=== PATIENT | female | born 1955 | race Caucasian/White ===

== ENCOUNTER 2018-07-19 05:44 | Observation (INO) | payer BC ==
--- NOTE | 2018-07-11 20:56 | HP ---
HISTORY AND PHYSICAL: DATE OF ADMISSION/SURGERY: 07/19/18 DATE OF OFFICE VISIT: 07/09/18 SURGEON: Edita Oconnor MD * (DICTATED BY ALEXEY CAMPOS) PROCEDURE: Right total knee arthroplasty. CHIEF COMPLAINT: Right knee pain. HISTORY OF PRESENT ILLNESS: Ms. Reyes is a 63-year-old female with continued complaints of right knee pain. She has failed conservative treatment and elected to proceed with a right total knee arthroplasty. PAST MEDICAL HISTORY: Hypertension, asthma, and heart murmur. PAST SURGICAL HISTORY: Left total knee arthroplasty, tubal ligation, right knee arthroscopy. CURRENT MEDICATIONS: 1. Hydrochlorothiazide 25 mg daily. 2. Fish oil. 3. Glucosamine. 4. Zyrtec Allergy. 5. Omnaris nasal spray. 6. Calcium with vitamin D. 7. Vitamin C. 8. Metoprolol 50 mg daily. 9. Omeprazole 20 mg daily. 10. Nasacort Allergy. 11. Quinapril 10 mg daily. 12. Meloxicam. ALLERGIES: CODEINE and ERYTHROMYCIN. FAMILY HISTORY: Cancer. SOCIAL HISTORY: She is a 63-year-old female. She lives with a housemate. She does not smoke or use drugs. Denies use of alcohol. REVIEW OF SYSTEMS: A complete 14-point review of systems was reviewed with the patient, it was all negative and noncontributory. She denies history of DVT, PE , hepatitis, HIV, or anesthesia problems. PHYSICAL EXAMINATION GENERAL: She is well developed, well nourished, in no acute distress. VITAL SIGNS: She stands 64 inches tall, weighs 225 pounds. Her blood pressure is 120/78. Her heart rate is 88. HEENT: Normocephalic, atraumatic. NECK: Supple. No palpable lymph nodes. PULMONARY: The lungs are clear to auscultation bilaterally. CARDIO: Regular rate and rhythm. Strong S1, S2. ABDOMEN: Soft, nontender, nondistended. NEUROLOGIC: She is alert and oriented x3. MUSCULOSKELETAL: Right lower extremity, the skin is intact. There are no open wounds or abrasions. She has some tenderness over the medial and lateral joint line. There is a moderate joint effusion. Range of motion is 10 to 120 degrees of flexion with patellofemoral crepitus. She has a 2+ dorsalis pedis pulse. Intact sensation in her lower extremity. Muscle group strengths are intact to 5/5. ASSESSMENT AND PLAN: Ms. Reyes is a 63-year-old female with end-stage osteoarthritis of the right knee. She has failed conservative treatment and elected to proceed with a right total knee arthroplasty. The surgery is scheduled for 07/19/[address] Oconnor discussed the risks and benefits of the surgery at today's visit and all of her questions were answered. She will follow up with Dr. Oconnor 2 weeks after the surgery. ALEXEY CAMPOS [id number]/[facility] #: [id number] TITO
[~2018-07-19 05:44] MED LIST: Buffered Lidocaine 0.9% SYRIN* 5 ML/SYR SYRINGE INTRADERM ONE; Tranexamic Acid 1,000 MG in NS 0.9% 50 ML* (outpatient use) IV SCH
[2018-07-19] MEDS ORDERED: Acetaminophen TAB* 325 MG PO ONE (06:00)
[2018-07-19] MEDS ORDERED: Famotidine IV* 10 MG/ML 2 ML (20 mg) IV ONE (06:00)
[2018-07-19] MEDS ORDERED: Gabapentin CAP(*) 300 MG PO ONE (06:00)
[2018-07-19] MEDS ORDERED: celeCOXIB CAP* 200 MG PO ONE (06:00)
[2018-07-19] MEDS ORDERED: celeCOXIB CAP* 100 MG ONE (06:40)
[2018-07-19] MEDS ORDERED: Famotidine IV* 10 MG/ML 2 ML (20 mg) ONE (06:40)
[2018-07-19] MEDS ORDERED: Gabapentin CAP(*) 300 MG ONE (06:40)
[2018-07-19] MEDS ORDERED: Acetaminophen TAB* 325 MG ONE (06:41)
[2018-07-19] MEDS ORDERED: ceFAZolin 2 GM PREMIX in ORs 2 GM/50 ML BAG IVPB ONE (06:41)
[2018-07-19] MEDS ORDERED: KETAMINE HCL* 50 MG/ML 10 ML VIAL ONE (06:42)
[2018-07-19] MEDS ORDERED: fentaNYL* 50 MCG/ML 2 ML VIAL (100 MCG VIAL) ONE (06:42)
[2018-07-19] MEDS ORDERED: Ondansetron INJ* 2 MG/ML VIAL ONE (06:42)
[2018-07-19] MEDS ORDERED: Dexamethasone IV* 4 MG/ML 1 ML (4 MG) ONE (06:42)
[2018-07-19] MEDS ORDERED: Lidocaine 2% PF * 5 ML VIAL ONE ×2 (06:42→07:59)
[2018-07-19] MEDS ORDERED: Propofol* 10 MG/ML 20 ML BTL ONE (06:42)
[2018-07-19] MEDS ORDERED: ROPIVACAINE 5 MG/ML 30 ML BTL (0.5%) ONE (06:42)
[2018-07-19] MEDS ORDERED: Midazolam* 1 MG/ML 10 ML VIAL (10 MG) ONE (06:43)
[2018-07-19] MEDS ORDERED: Bupivacaine 0.5% SDV PF* 30ML VIAL ONE (07:57)
[2018-07-19] MEDS ORDERED: Bupivacaine 0.5% PF 10 ML VIAL INJ ONE ×2 (08:02)
[2018-07-19] MEDS ORDERED: Propofol* 500 MG/50 ML BTL ONE (08:08)
[2018-07-19] MEDS ORDERED: Metoclopramide IV* 5 MG/ML 2 ML VIAL ONE (08:11)
[2018-07-19] MEDS ORDERED: Phenylephrine INJ* 10 MG/ML 1 ML VIAL (10 MG) ONE (08:27)
[2018-07-19] MEDS ORDERED: Naloxone* 0.4 MG/ML 1 ML VIAL IV PRN (09:40)
[2018-07-19] MEDS ORDERED: fentaNYL* 50 MCG/ML 2 ML VIAL (100 MCG VIAL) IV PRN (09:40)
[2018-07-19] MEDS ORDERED: Phenylephrine INJ* 50 MG in NS 0.9% 250 ML* 245 ML IV PRN (09:40)
[2018-07-19] MEDS ORDERED: Ondansetron INJ* 2 MG/ML VIAL IV PRN ×2 (09:40→10:07)
[2018-07-19] MEDS ORDERED: traMADol TAB* 50 MG PO PRN (10:07)
[2018-07-19] MEDS ORDERED: oxyCODONE/Acetamin 5/325 MG* TAB PO PRN (10:07)
[2018-07-19] MEDS ORDERED: diPHENhydraMINE IV* 50 MG/ML 1 ml VIAL (BENADRYL) IV PRN (10:07)
[2018-07-19] MEDS ORDERED: Cyclobenzaprine TAB* 10 MG PO PRN (10:07)
[2018-07-19] MEDS ORDERED: Bisacodyl SUPP* 10 MG SUPP PR PRN (10:07)
[2018-07-19] MEDS ORDERED: Magnesium Hydroxide LIQ* 30 ML UDC PO PRN (10:07)
[2018-07-19] MEDS ORDERED: Ondansetron TAB* 4 MG PO PRN (10:07)
[2018-07-19] MEDS ORDERED: oxyCODONE TAB* 5 MG TAB PO PRN (10:07)
[2018-07-19] MEDS ORDERED: Morphine VIAL* 4 MG/ML VIAL (1 ml vial) IV PRN (10:07)
[2018-07-19] MEDS ORDERED: Polyethylene Glycol 3350* 17 GM PACKET PO PRN (10:07)
[2018-07-19] MEDS ORDERED: Albuterol HFA INHALER* 8 gm MDI INH PRN (10:15)
[2018-07-19] MEDS: Acetaminophen TAB* 325 MG PO SCH ×2 (15:36→23:14)
--- NOTE | 2018-07-19 16:50 | PN ---
Progress Note - Progress Note Date of Service: 07/19/18 SOAP: Subjective: [Seen this evening sitting in chair. States that she is doing very well. Pain is under control. Denies any chest pain, SOB, nausea or vomiting] Objective: [MSK, RLE: Dressing is c/d/i, +df/pf, calf soft and non tender. 2+ DP pulse. ] Vital Signs Temp 97.5 F 07/19/18 14:28 Pulse 79 07/19/18 14:28 Resp 18 07/19/18 14:28 BP 107/41 07/19/18 14:28 Pulse Ox 96 07/19/18 15:50 Intake & Output 07/18/18 07/19/18 07/19/18 18:59 06:59 18:59 Intake Total 2700 Output Total 1725 Balance 975 Weight 223 lb Intake: IV Fluids 2700 LR 2700 Output: Sofia 1525 Estimated Blood Loss 200 Assessment: [POD 0 RTKA] Plan: [Post op abx continue with current anticoagulation, warfarin 6 mg tonight, lovenox tomorrow Continue with pain medication. ]
[2018-07-19] MEDS: ceFAZolin 1 GM ADVAN(*) 1 GM in NS 0.9% 50 ML* 50 ML IVPB SCH (16:56)
[2018-07-19] MEDS ORDERED: Warfarin TAB(*) 6 MG PO ONE (17:00)
[2018-07-19] MEDS: Docusate CAP* 100 MG PO SCH (20:37)
[2018-07-19] MEDS: Magnesium Hydroxide LIQ* 30 ML UDC PO SCH (20:38)
--- NOTE | 2018-07-19 21:22 | CONS ---
[facility] MEDICINE CONSULTATION REPORT: DATE OF CONSULT: 07/19/18 PROVIDER: Natividad Shearer NP ATTENDING PHYSICIAN: Dr. Oconnor. CONSULTING PHYSICIAN: Dr. Saud Christiansen (dictated by Natividad Shearer NP) REASON FOR CONSULT: Co-management of chronic medical conditions. HISTORY OF PRESENT ILLNESS: Ms. Reyes is a 63-year-old female with past medical history significant for hypertension, asthma, heart murmur, who [place] [facility] [place] an elective right total knee arthroplasty with Dr. Oconnor. Please see the dictated H and P from ALEXEY Zamora, for complete details. In brief, the patient had ongoing pain and failed conservative measures. Therefore, opted for right total knee arthroplasty with Dr. Oconnor. In the immediate postoperative period, the patient has no complaints. The patient denies any recent illnesses or sick contacts and states was in normal state of health prior to admission to the hospital. Due to her chronic medical conditions of hypertension and asthma, we were asked to consult for co-management. PAST MEDICAL HISTORY: 1. Hypertension. 2. Asthma. 3. History of heart murmur. PAST SURGICAL HISTORY: 1. Left total knee arthroplasty. 2. Tubal ligation. 3. Right total knee arthroscopy. HOME MEDICATIONS: 1. Hydrochlorothiazide 25 mg p.o. daily. 2. Glucosamine. 3. Vitamin D3 25 mcg p.o. q.a.m. 4. Vitamin B complex 1 tab p.o. q.a.m. 5. Quinapril 10 mg p.o. q.a.m. 6. Omeprazole 20 mg p.o. q.p.m. 7. [place]-3 fatty acids 520 mg p.o. q.a.m. 8. Metoprolol 50 mg p.o. at 2300. 9. Mobic 15 mg p.o. q.a.m. 10. Hydrochlorothiazide 25 mg p.o. q.a.m. 11. Fluticasone 1 spray both nares q.a.m. 12. Zyrtec 2.5 mg p.o. b.i.d. 13. Ascorbic acid 1000 mg p.o. q.a.m. 14. Ventolin inhaler 2 puffs q.4 hours as needed for shortness of breath. ALLERGIES: CODEINE, ERYTHROMYCIN. FAMILY HISTORY: Mother with a history of hypertension. No reported history of diabetes. Father with history of liver and kidney cancer. SOCIAL HISTORY: Denies any tobacco, alcohol, or illicit drug use. She is . She lives with a housemate. Surrogate decision maker is her daughter, her phone number is [phone]. Her name is Aziza. She is a full code. REVIEW OF SYSTEMS: General: There is no fever, chills, or unintended weight loss. Cardiac: Denies any chest pain or edema. Respiratory: Denies any cough , congestion, hemoptysis, or shortness of breath. She denies any nausea, vomiting, diarrhea, or abdominal pain. : Denies any dysuria, urinary frequency, or hematuria. Neurologic: She denies any focal weakness or sensory loss. Eyes: Denies any visual complaints. ENT: Denies any dysphagia. Musculoskeletal: Denies any increased arthralgias or myalgias. Denies any rashes, lesions, or open sores. Denies any psychosis or anxiety. A review of 14 systems completed, all others were negative. PHYSICAL EXAM: Vital Signs: Temperature 97.6, heart rate was 90, respirations 16, O2 saturation 96%, blood pressure 132/86. General: Ms. Reyes is resting on the stretcher in PACU. She does not appear to be in any acute distress. Neurologic: She is awake, alert, and oriented x3. HEENT: Head is atraumatic, normocephalic. Eyes: EOMs are intact. Sclerae are anicteric and not pale. Oral mucosa appeared to be moist. No oropharyngeal erythema. Neck is supple. Lungs are clear to auscultation bilaterally. No wheezes, rales, or rhonchi. Cardiac: S1, S2. Regular rate and rhythm. No murmurs, rubs, or gallops. Abdomen is soft and nontender. Bowel sounds are present x4. Extremities: Pedal pulses are +2 bilaterally. She does have a dressing intact to her right knee that is dry and intact. Skin: She does have a dressing that is dry and intact to the right knee. LABORATORY DATA: On 06/22/18, WBCs were 7.4, RBCs 4.32, hemoglobin 13.9, hematocrit was 40, platelet count was 299. INR on 07/09/18 was 0.90. Chemistry on 06/22/18, sodium 140, potassium 4.3, chloride 106, carbon dioxide was 25, anion gap was 9, BUN was 21, creatinine 0.92. ASTs were 16, ALTs were 18, alkaline phosphatase was 99. Urine pH was 7, specific gravity 1.004, the rest was within normal limits. IMPRESSION AND PLAN: Ms. Reyes is a 63-year-old female with past medical history significant for asthma and hypertension, who presented [place] [facility] [place] an elective right total knee arthroplasty with Dr. Oconnor. In the immediate postoperative period, the patient has no complaints. We were consulted to co- manage her chronic medical conditions of hypertension. Our recommendations are as follows: 1. Status post right total knee arthroplasty, management per Orthopedics. PT/ OT per Orthopedics. DVT prophylaxis per Orthopedics. Bowel regimen per Orthopedics. 2. Hypertension. I would hold her hydrochlorothiazide, quinapril, and metoprolol at this time as her blood pressure is soft at 100 systolically. She has been running 104 to 107 systolically and may evaluate in the morning and resume as able. I will start with metoprolol first. 3. Asthma. The patient can have her Ventolin inhaler q.4 hours as needed. Continue Zyrtec and Flonase as needed. 4. Gastroesophageal reflux disease. I will continue on her omeprazole 20 mg as previously prescribed. 5. DVT prophylaxis. Per Orthopedics. 6. Diet. She can have low-sodium diet. 7. Code status. She is a full code. TIME SPENT: Time spent on this consultation was 45 minutes, more than half the time was spent with the patient at the bedside reviewing events leading thus far to her hospitalization, performing a physical exam, and reviewing my plan of care. I have discussed this with my attending, Dr. Saud Christiansen; he is in agreement with my plan. NATIVIDAD SHEARER, STOCK SHIPPER [id number]/[facility] #: [id number] TITO
[2018-07-19] MEDS ORDERED: Metoprolol Succinate XL TAB* 50 MG PO SCH ×2 (23:00)
[2018-07-19] MEDS ORDERED: Omeprazole CAP* 20 MG PO SCH (23:00)
[2018-07-20] MEDS: ceFAZolin 1 GM ADVAN(*) 1 GM in NS 0.9% 50 ML* 50 ML IVPB SCH ×2 (01:04→08:15)
[2018-07-20 05:10] LABS: Hematocrit 31 % (35-47); Hemoglobin 10.5 g/dl (12.0-16.0); Mean Platelet Volume 8.7 fL (7.4-10.4); Platelet Count 218 10^3/ul (150-450)
[2018-07-20 05:13] LABS: INR 1.02 (0.77-1.02)
[2018-07-20 05:21] LABS: EGFR Non-African American 70.9 (>60)
[2018-07-20] MEDS: oxyCODONE/Acetamin 5/325 MG* TAB PO PRN ×3 (06:15→16:47)
[2018-07-20] MEDS: Acetaminophen TAB* 325 MG PO SCH ×2 (06:21→16:20)
--- NOTE | 2018-07-20 07:04 | PN ---
Progress Note - Progress Note Date of Service: 07/20/18 SOAP: Subjective: Pt. is doing well, pain controlled. Objective: Vital Signs: Temp Pulse Resp BP Pulse Ox 98.3 F 75 16 108/61 96 07/20/18 04:22 07/20/18 04:22 07/20/18 06:15 07/20/18 04:22 07/20/18 04:22 Laboratory Results - last 24 hr 07/20/18 07/20/18 07/20/18 04:55 04:55 04:55 Hgb 10.5 L Hct 31 L Plt Count 218 MPV 8.7 INR (Anticoag Therapy) 1.02 Sodium 140 Potassium 3.7 Chloride 108 Carbon Dioxide 27 Anion Gap 5 BUN 18 Creatinine 0.82 Est GFR ( Amer) 85.8 Est GFR (Non-Af Amer) 70.9 BUN/Creatinine Ratio 22.0 H Glucose 140 H Calcium 8.6 RLE - dressing c/d/i. thigh ttp, soft, distally +df/pf, full sens lt, 2+ dp pulse. Assessment: 63 yo F pod 1 s/p RTKA Plan: wbat rle pt/ot eliquis for dvt proph x 30 days plan d/c to home today
[2018-07-20] MEDS: Magnesium Hydroxide LIQ* 30 ML UDC PO SCH (08:15)
[2018-07-20] MEDS: Docusate CAP* 100 MG PO SCH (08:15)
[2018-07-20] MEDS ORDERED: Hydrochlorothiazide TAB* 25 MG PO SCH (09:00)
[2018-07-20] MEDS ORDERED: Lisinopril TAB* 10 MG PO SCH ×2 (09:00)
--- NOTE | 2018-07-20 11:42 | PN ---
Subjective Date of Service: 07/20/18 Interval History: Pt resting comfortably in bed. Reports pain is well managed on current regimen. Denies any chest pain, palpitations, shortness of breath, headache, dizziness, abdominal pain. Has been tolerating regular diet without nausea/vomiting. No BM yet but is passing gas and is on bowel regimen. Objective Active Medications: Acetaminophen (Tylenol Tab*) 975 mg PO Q8H [facility] Last Admin: 07/20/18 06:21 Dose: Not Given Albuterol (Ventolin Hfa Inhaler*) 2 puff INH Q4H PRN PRN Reason: SOB/WHEEZING Bisacodyl (Dulcolax Supp*) 10 mg W[place] DAILY PRN PRN Reason: constipation Cyclobenzaprine HCl (Flexeril Tab*) 10 mg PO TID PRN PRN Reason: SPASMS Diphenhydramine HCl (Benadryl Iv*) 12.5 mg IV Q6H PRN PRN Reason: PRURITIS Docusate Sodium (Colace Cap*) 100 mg PO BID [facility] Last Admin: 07/20/18 08:15 Dose: 100 mg Enoxaparin Sodium (Lovenox(*)) 40 mg SUBCUT Q24H [facility] Lactated Ringer's (Lactated Ringers 1000 Ml Bag*) 1,000 mls @ 100 mls/hr IV PER RATE [facility] Last Admin: 07/19/18 23:15 Dose: 100 mls/hr Lactulose (Lactulose*) 30 ml PO Q6H PRN PRN Reason: constipation Lisinopril (Prinivil Tab*) 10 mg PO QAM [facility] Last Admin: 07/20/18 08:15 Dose: 10 mg Magnesium Hydroxide (Milk Of Magnesia Liq*) 30 ml PO BID [facility] Last Admin: 07/20/18 08:15 Dose: 30 ml Magnesium Hydroxide (Milk Of Magnesia Liq*) 30 ml PO Q6H PRN PRN Reason: constipation Metoprolol Succinate (Toprol Xl Tab*) 50 mg PO 2300 [facility] Last Admin: 07/19/18 23:13 Dose: 50 mg Morphine Sulfate (Morphine Vial*) 2 mg IV Q2H PRN PRN Reason: PAIN Omeprazole (Prilosec Cap*) 20 mg PO 2300 [facility] Last Admin: 07/19/18 23:13 Dose: 20 mg Ondansetron HCl (Zofran Inj*) 4 mg IV Q6H PRN PRN Reason: nausea Ondansetron HCl (Zofran Tab*) 4 mg PO Q6H PRN PRN Reason: NAUSEA Oxycodone HCl (Roxycodone Tab*) 10 mg PO Q4H PRN PRN Reason: SEVERE PAIN Last Admin: 07/20/18 01:59 Dose: 10 mg Oxycodone/Acetaminophen (Percocet 5/325 Tab*) 1 tab PO Q4H PRN PRN Reason: PAIN Oxycodone/Acetaminophen (Percocet 5/325 Tab*) 2 tab PO Q4H PRN PRN Reason: PAIN Last Admin: 07/20/18 06:15 Dose: 2 tab Pharmacy Profile Note (Coumadin Daily Reminder*) 1 note FOLLOW UP 1700 [facility] Last Admin: 07/19/18 16:56 Dose: 1 note Polyethylene Glycol/Electrolytes (Miralax*) 17 gm PO DAILY PRN PRN Reason: Constipation Tramadol HCl (Ultram*) 50 mg PO Q6H PRN PRN Reason: PAIN Vital Signs - 8 hr 07/20/18 07/20/18 07/20/18 04:22 04:57 06:15 Temperature 98.3 F Pulse Rate 75 Respiratory 18 16 16 Rate Blood Pressure 108/61 (mmHg) O2 Sat by Pulse 96 Oximetry 07/20/18 07/20/18 07:27 08:00 Temperature 98.2 F Pulse Rate 74 Respiratory 16 16 Rate Blood Pressure 120/65 (mmHg) O2 Sat by Pulse 95 95 Oximetry Oxygen Devices in Use Now: None Eyes: No Scleral Icterus Ears/Nose/Mouth/Throat: NL Teeth, Lips, Gums Neck: NL Appearance and Movements; NL JVP, Trachea Midline Respiratory: Symmetrical Chest Expansion and Respiratory Effort, Clear to Auscultation Cardiovascular: NL Sounds; No Murmurs; No JVD, RRR Abdominal: NL Sounds; No Tenderness; No Distention Extremities: No Clubbing, Cyanosis, - - Trace right lower extremity edema. No calf tenderness or erythema. 2+ DP and PT pulses bilaterally. Able to dorsiflex and plantarflex. Neurological: Alert and Oriented x 3, NL Sensation, NL Muscle Strength and Tone Nutrition: Taking PO's Result Diagrams: 07/20/18 04:55 07/20/18 04:55 Assess/Plan/Problems-Billing Assessment: 63 year old female with PMH HTN, asthma s/p R total knee with Dr Oconnor yesterday - Patient Problems (1) Status post total right knee replacement Current Visit: Yes Status: Acute Code(s): Z96.651 - PRESENCE OF RIGHT ARTIFICIAL KNEE JOINT SNOMED Code(s): 6689574523264 Comment: - Plan per primary team, ortho. Pain is well controlled on current regimen. Continue pain control and bowel regimen per ortho. - Trend H/h - PT - Anticoagulation with lovenox (2) HTN (hypertension) Current Visit: Yes Status: Acute Code(s): I10 - ESSENTIAL (PRIMARY) HYPERTENSION SNOMED Code(s): 96099465 Comment: - Normotensive - Continue lisinopril and metoprolol (3) Asthma Current Visit: Yes Status: Acute Code(s): J45.909 - UNSPECIFIED ASTHMA, UNCOMPLICATED SNOMED Code(s): 726156962 Comment: - No evidence of acute exacerbation. Lung clear to auscultation - Continue albuterol PRN (4) GERD (gastroesophageal reflux disease) Current Visit: Yes Status: Acute Code(s): K21.9 - GASTRO-ESOPHAGEAL REFLUX DISEASE WITHOUT ESOPHAGITIS SNOMED Code(s): 697047598 Comment: - Continue omeprazole (5) DVT prophylaxis Current Visit: Yes Status: Acute Code(s): DKD0131 - SNOMED Code(s): 457805522 (6) Full code status Current Visit: Yes Status: Acute Code(s): Z78.9 - OTHER SPECIFIED HEALTH STATUS SNOMED Code(s): 848370916 Status and Disposition: Dispo per primary team
[2018-07-20] MEDS ORDERED: Enoxaparin(*) 40 MG/0.4 ML SYR SUBCUT SCH (12:00)
--- NOTE | 2018-07-20 13:18 | OP ---
OPERATIVE NOTE: DATE OF OPERATION: 07/19/18. DATE OF : 59. ATTENDING SURGEON: Edita Oconnor MD. COOK CHIEF: ALEXEY Zamora. Ms. Duenas did help throughout the procedure with preparation of the leg, wound retraction, manipul ation of the knee, and wound closure. ANESTHESIOLOGIST: Dr. Quinn. ANESTHESIA: Spinal. PRE-OP DIAGNOSIS: Severe endstage degenerative osteoarthritis of the right knee joint. POST-OP DIAGNOSIS: Severe endstage degenerative osteoarthritis of the right knee joint. OPERATIVE PROCEDURE: Right total knee arthroplasty. TOURNIQUET TIME: 44 minutes. COMPLICATIONS: None. ESTIMATED BLOOD LOSS: 200 cc. HARDWARE USED: This is cemented [employer]hew total knee arthroplasty hardware. Two packages of S implex bone cement. For the femur, a size 5 right narrow posterior stabilized Oxinium Legion femoral component. For the tibia, a size 3 right tibial base plate Deepti II. For the insert, an 11-mm po sterior stabilized articular insert, size 3-4. For the patella, a 32-mm 3-peg all poly patella. BRIEF HISTORY/INDICATIONS: Ms. Reyes is a 63-year-old female with years of increasingly severe rig ht knee pain. She failed conservative treatment with antiinflammatories, pain medication, intraartic ular injections, and physical therapy. Radiographs showed [id number] arthritis. Due to continued pain and decreased quality of life, she elected to undergo right total knee arthroplasty. Informed co nsent was obtained from the patient. She understood the risks of surgery including, but was not limi amisha to bleeding, infection, damage to nearby structures, continued pain, need for further surgery, in traoperative fracture, nerve palsy, hardware failure or loosening, knee stiffness, loss of motion, st roke, heart attack, blood clot, and . She wished to proceed. INTRAOPERATIVE FINDINGS: Intraoperatively, the patient was noted to have severe endstage arthritis w ith complete loss of cartilage in all 3 compartments. She had extensive osteophyte formation. Osteo penia was noted throughout the case. DESCRIPTION OF PROCEDURE: Ms. Reyes was identified in the preanesthesia unit. Her right lower extr emity was marked as the correct operative site. Informed consent was signed and placed in the chart. The patient was taken to the operating room and placed under spinal anesthesia. A Sofia catheter w as placed. Tourniquet was placed on the right thigh. Right lower extremity was prepped and draped i n the usual sterile fashion. Preop time-out was made to correctly identify the patient's side and si te. Appropriate perioperative antibiotics were given within 1 hour of incision. Tourniquet was inflated and total tourniquet time for this procedure was 44 minutes. A midline incis ion was made with a 10-blade and carried down to the extensor mechanism. A new 10-blade was used to make a standard medial parapatellar arthrotomy. The patella was everted. Electrocautery was used to subperiosteally elevate the soft tissue off the superomedial tibia to the midsagittal plane. The kn ee was flexed up. The anterior horn of the lateral meniscus and ACL were sharply released. A drill was used to enter the distal femur. Intramedullary distal femoral cutting guide was pinned on the di stal femur. Oscillating saw was used to make the distal femoral cut. Next, the external rotation gu ashia was pinned on the distal femur. The distal femur was sized to a size 5. A size 5 multi-cutting jig was pinned on the distal femur. Oscillating saw was used to make the appropriate 4 chamfer cuts. The PCL was completely released and the tibia was subluxed anteriorly. Extramedullary tibial cutting guide was pinned on the proximal tibia. Oscillating saw was used to make the proximal tibial cut per pendicular to the mechanical axis of the tibia. The bone was carefully removed. The knee was krys t out into full extension. Spacer block had good fit with the knee in full extension. Medial and la teral ligaments were well balanced. Flexion and extension gaps were well balanced. The knee was flexed up. Lamina field hockey and lacrosse coach was placed both medially and laterally. Any remaining menisc us was carefully removed using electrocautery. A curved osteotome was used to remove any posterior o steophytes. Tibial tray and drop katiuska were placed and once again confirmed a satisfactory tibial cut. A size 5 narrow right femoral trial was impacted onto the distal femur and had excellent fit. The shamir x for the posterior stabilized implant was prepared using a reamer and box cut osteotome. Size 3 tib ial tray trial with an 11-mm insert trial was placed the knee was taken through a range of motion. T he knee had full extension to 130 degrees of flexion. There was a satisfactory patellofemoral tracki ng. The patella was everted and 9-mm of patellar bone and cartilage was carefully removed using an oscill ating saw. The patella was sized to a size 32. Three peg holes were drilled through the size 32 robyn de. A 32 trial patella was placed and the knee was taken through a range of motion. There was satis factory patellofemoral tracking. All trials were carefully removed. The tibia was subluxed anterior ly and sized to a size 3. Proximal tibia was prepared using a keel punch. All bony cut surfaces were copiously irrigated with sterile saline and dried. Final implants were zeynep ented into place, starting with the tibia and followed by the femur and last the patella. An 11-mm i nsert trial was placed and the knee was brought into full extension. Tourniquet was turned down at 4 4 minutes. Electrocautery was used to obtain meticulous hemostasis. The knee was copiously irrigated with sterile saline. Once the cement had fully cured, the insert trial was removed. Any excess zeynep ent was carefully removed from around the capsule and hardware. Final insert chosen was an 11-mm pos terior stabilized articular insert size 3-4. This was locked into position on the tibial tray. Stab ility of the insert was checked and rechecked and noted to be stable. The extensor mechanism was sabrina sed using interrupted #1 Vicryls. The rest of the incision was closed in a layered fashion using 0 a nd 2-0 Vicryls. Skin was closed using running 3-0 nylon suture. Sterile Xeroform, 4x4s, and Webril were used to cover the incision. Sesar wrap and cold pack were placed over this. The patient's anesth esia was reversed without difficulty. She was taken to the PACU in stable condition. Intended weigh tbearing will be weightbearing as tolerated. Intended DVT prophylaxis will be Coumadin with a Loveno x bridge. [id number]/[facility] #: [id number]
--- NOTE | 2018-07-20 13:46 | PN ---
Progress Note - Progress Note Date of Service: 07/20/18 SOAP: Subjective: 63 y/o female s/p R TKA by Dr. Oconnor. Patient doing well, no complaints, no questions on surgery. WOuld like D/C today. VSS, afebrile, working well with PT. Objective: GEneral- WEll appearing, NAD resting comfortably MSK- Dressing intact, no drainage noted, + DF/PF, PT 2+, negative homans sign. SITLT Vital Signs Temp 98.2 F 07/20/18 11:17 Pulse 80 07/20/18 11:17 Resp 16 07/20/18 12:17 BP 130/70 07/20/18 11:17 Pulse Ox 94 07/20/18 11:17 Intake & Output 07/19/18 07/20/18 07/20/18 18:59 06:59 18:59 Intake Total 2700 2904 580 Output Total 1725 750 0 Balance 975 2154 580 Intake: IV Fluids 2700 1054 ABX - CEFAZOLIN 110 LR 2700 944 Oral 1850 580 Output: Urine 750 0 Sofia 1525 Estimated Blood Loss 200 Assessment: Stable POD#1 63 y/o female s/p R TKA by Dr. Oconnor. Plan: _ D/C today - Eliquis for DVT prophylaxis x 25 days - FOllow up with Dr. Oconnor in 10 days for suture removal - HOme PT - Perocet as needed for pain - COlace for stool softner as h/o constipation Acetaminophen (Tylenol Tab*) 975 mg PO Q8H [facility] Last Admin: 07/20/18 06:21 Dose: Not Given Albuterol (Ventolin Hfa Inhaler*) 2 puff INH Q4H PRN PRN Reason: SOB/WHEEZING Bisacodyl (Dulcolax Supp*) 10 mg TN DAILY PRN PRN Reason: constipation Cyclobenzaprine HCl (Flexeril Tab*) 10 mg PO TID PRN PRN Reason: SPASMS Diphenhydramine HCl (Benadryl Iv*) 12.5 mg IV Q6H PRN PRN Reason: PRURITIS Docusate Sodium (Colace Cap*) 100 mg PO BID [facility] Last Admin: 07/20/18 08:15 Dose: 100 mg Enoxaparin Sodium (Lovenox(*)) 40 mg SUBCUT Q24H [facility] Last Admin: 07/20/18 12:17 Dose: 40 mg Lactated Ringer's (Lactated Ringers 1000 Ml Bag*) 1,000 mls @ 100 mls/hr IV PER RATE [facility] Last Admin: 07/19/18 23:15 Dose: 100 mls/hr Lactulose (Lactulose*) 30 ml PO Q6H PRN PRN Reason: constipation Lisinopril (Prinivil Tab*) 10 mg PO QAM [facility] Last Admin: 07/20/18 08:15 Dose: 10 mg Magnesium Hydroxide (Milk Of Magnesia Liq*) 30 ml PO BID [facility] Last Admin: 07/20/18 08:15 Dose: 30 ml Magnesium Hydroxide (Milk Of Magnesia Liq*) 30 ml PO Q6H PRN PRN Reason: constipation Metoprolol Succinate (Toprol Xl Tab*) 50 mg PO 2300 [facility] Last Admin: 07/19/18 23:13 Dose: 50 mg Morphine Sulfate (Morphine Vial*) 2 mg IV Q2H PRN PRN Reason: PAIN Omeprazole (Prilosec Cap*) 20 mg PO 2300 [facility] Last Admin: 07/19/18 23:13 Dose: 20 mg Ondansetron HCl (Zofran Inj*) 4 mg IV Q6H PRN PRN Reason: nausea Ondansetron HCl (Zofran Tab*) 4 mg PO Q6H PRN PRN Reason: NAUSEA Oxycodone HCl (Roxycodone Tab*) 10 mg PO Q4H PRN PRN Reason: SEVERE PAIN Last Admin: 07/20/18 01:59 Dose: 10 mg Oxycodone/Acetaminophen (Percocet 5/325 Tab*) 1 tab PO Q4H PRN PRN Reason: PAIN Oxycodone/Acetaminophen (Percocet 5/325 Tab*) 2 tab PO Q4H PRN PRN Reason: PAIN Last Admin: 07/20/18 12:17 Dose: 2 tab Pharmacy Profile Note (Coumadin Daily Reminder*) 1 note FOLLOW UP 1700 [facility] Last Admin: 07/19/18 16:56 Dose: 1 note Polyethylene Glycol/Electrolytes (Miralax*) 17 gm PO DAILY PRN PRN Reason: Constipation Tramadol HCl (Ultram*) 50 mg PO Q6H PRN PRN Reason: PAIN
[2018-07-20] MEDS ORDERED: Apixaban* 2.5 MG TAB PO SCH (14:00)
[2018-07-20 16:32] VITALS: BP 134/75
== END 2018-07-20 16:45 | disposition home or self-care (01) ==
LOC: OR 05:44 → EDSTATUS 13:00 → SSU 13:30 → INTOOBSV 13:30
PROVIDERS: ADMIT Orthopaedic Surgery Adult Reconstructive Orthopaedic Surgery; ATTEND Orthopaedic Surgery Adult Reconstructive Orthopaedic Surgery
DX: M17.11 Unilateral primary osteoarthritis, right knee (principal); I10 Essential (primary) hypertension; J45.909 Unspecified asthma, uncomplicated; K21.9 Gastro-esophageal reflux disease without esophagitis; Z98.51 Tubal ligation status
CPT/HCPCS: 36415; 80048; 85014; 85018; 85049; 85610; 96374; 96375; 96376; A9270-GY; G0378; J0690; J1100; J1650; J2250; J2405; J2704; J2765; J2795; J3010